=== PATIENT | female | born 1975 | race Caucasian/White ===

== ENCOUNTER 2019-03-15 22:35 | Emergency (ER) | payer MEDICAID ==
[2019-03-15] MEDS: FAMOTIDINE 20 MG TAB PO (23:58)
== END 2019-03-16 00:52 | disposition home or self-care (01) ==
LOC: FTE 03-16 00:52
DX: R05 Cough (principal); R07.9 Chest pain, unspecified
CPT/HCPCS: 71045; 81025; 93005; 99284-25